=== PATIENT | male | born 1930 ===

== ENCOUNTER 2017-12-24 08:44 | Emergency (ER) | payer OTHER ==
[~2017-12-24] VITALS: Ht 157.5 cm; Wt 62.1 kg
[~2017-12-24 08:44] MED LIST: ALTACE2.5 MG PO; ANTIVERT12.5 MG PO; FLONASE16 GM NS; LIPITOR20 MG PO; NEURONTIN300 MG PO; PROSCAR5 MG PO; TAMS0.4C PO; ZYRTEC10 MG PO
[2017-12-24] MEDS ORDERED: LAXATIVE5 M1 (09:03)
== END 2017-12-24 19:14 | disposition home or self-care (01) ==
LOC: ER 08:44
DX: K62.5 Hemorrhage of anus and rectum (principal); K57.30 Diverticulosis of large intestine without perforation or abscess without bleeding